=== PATIENT | male | born 1960 | race Asian ===

== ENCOUNTER 2017-07-10 21:42 | Inpatient (IN) | payer OTHER, MEDICAID ==
[2017-07-10] MEDS ORDERED: IOPAMIDOL (ISOVUE 370) 100 ML BTL IV ONE (21:53)
[2017-07-10 21:57] LABS: % IMMATURE GRANULYOCYTES 0.8 % (0.0-1.1); ADD DIFF? NO; ADD MORPH? NO; ADD SCAN? NO; ATYPICAL LYMPHOCYTE FLAG 20 (0-99); FRAGMENT RBC FLAG 0 (0-99); HEMATOCRIT 44.8 % (40.0-51.0); HEMOGLOBIN 15.3 g/dL (13.7-17.5); LEFT SHIFT FLG 0 (0-99); LIPEMIA HEMOLYSIS FLAG 90 (0-99); MEAN CELL HEMOGLOBIN 33.4 pg (27.9-34.1); MEAN CELL HEMOGLOBIN CONCENTR. 34.2 g/dL (32.4-36.7); MEAN CELL VOLUME 97.8 fL (81.5-99.8); MEAN PLATELET VOLUME 10.5 fL (8.7-11.7); PLATELET CLUMPS FLAG 10 (0-99); PLATELET COUNT 188 10^3/uL (150-400); RED BLOOD CELL COUNT 4.58 10^6/uL (4.40-6.38); RED CELL DISTRIBUTION WIDTH 12.4 % (11.5-15.2)
[2017-07-10] MEDS ORDERED: ONDANSETRON 4 MG/2 ML VIAL IVP ONE (21:57)
[2017-07-10] MEDS ORDERED: TDAP ADULT 0.5 ML INJ (BOOSTRIX) IM ONE (21:57)
[2017-07-10] MEDS ORDERED: ceFAZolin 2 GM/DEXTROSE 100 ML IV ONE ×2 (21:57→23:36)
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
[2017-07-10 22:06] LABS: INR 1.05 (0.83-1.16); PROTIME(PATIENT) 13.6 SEC (12.0-15.0)
[2017-07-10] MEDS ORDERED: NS 1,000 ML IV ONE (22:08)
[2017-07-10 22:14] LABS: ANION GAP 17 mEq/L (8-16); CALCIUM 9.4 mg/dL (8.5-10.4); CARBON DIOXIDE 17 mEq/l (22-31); CHLORIDE 104 mEq/L (97-110); CREATININE 0.9 mg/dL (0.7-1.3); ETHANOL SERUM 114 mg/dL (0-10); GLOMERULAR FILTRATION RATE > 60; GLUCOSE 184 mg/dL (70-100); POTASSIUM 3.6 mEq/L (3.5-5.2); SODIUM 138 mEq/L (134-144)
--- NOTE | 2017-07-10 22:30 | CPEKG ---
Heart Rate: 103 RR Interval: 583 P-R Interval: 156 QRSD Interval: 92 QT Interval: 320 QTC Interval: 419 P Richmond: 46 QRS Richmond: 53 T Wave Richmond: 248 EKG Severity - ABNORMAL ECG - EKG Impression: SINUS TACHYCARDIA EKG Impression: ABNRM R PROG, CONSIDER ASMI OR LEAD PLACEMENT Electronically Signed By: Fish Zaragoza 11-Jul-2017 07:28:48
[2017-07-10] MEDS ORDERED: ONDANSETRON 4 MG/2 ML VIAL IVP PRN (23:06)
[2017-07-10] MEDS ORDERED: LR 1,000 ML IV SCH (23:30)
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
--- NOTE | 2017-07-10 23:52 | SOAPPROG ---
Downtime Inpatient MD Late Entry SOAP Note: Spoke with Dr. Aly. Patient is low risk for surgery from a GCS standpoint but in view of his need for the OR with an acute SDH we will repeat the CT head immediately after the surgery. AVOID ANTICOAGULATION and ANTIPLATELET AGENTS IN THIS PATIENT. -Dusty Gould MD.
--- NOTE | 2017-07-10 23:55 | SOAPPROG ---
SOAP Progress Note Assessment/Plan: Assessment: Magdalena is a pleasant 56 year old male now POD#0 from open left distal tibia fracture. PE: Surgical dressing and posterior leg splint intact. NV intact LLE Plan: 1. NWB LLE 2. Ancef 1g q8 hours x 2 doses 3. Keep splint clean and dry 4. Discharge once cleared from trauma. Follow up in [address] Man for suture removal and repeat radiographs. Script for pain medication and oral antibiotics in chart. 07/11/17 02:23 Objective: PT 13.6 SEC (12.0-15.0) 07/10/17 21:50 INR 1.05 (0.83-1.16) 07/10/17 21:50 ICD10 Worksheet Patient Problems: Problems Problem Status Onset Intra abdominal hemorrhage Acute Open tibial fracture Acute Rib fractures Acute SDH (subdural hematoma) Acute
[2017-07-10] MEDS ORDERED: PROPOFOL 200 MG/20 ML VIAL ONE (23:56)
[2017-07-10] MEDS ORDERED: ROCURONIUM 50 MG/5 ML VIAL ONE (23:56)
[2017-07-10] MEDS ORDERED: fentaNYL 100 MCG/2 ML INJ ONE (23:57)
[2017-07-11] MEDS ORDERED: ceFAZolin 1 GM VIAL ONE ×2 (00:16)
--- NOTE | 2017-07-11 00:31 | PDANEPAE ---
ANE History of Present Illness L Tibia Fx ANE Past Medical History - Cardiovascular History Hx Hypertension: Yes Hx Arrhythmias: No Hx Chest Pain: No Hx Coronary Artery / Peripheral Vascular Disease: Yes Hx CHF / Valvular Disease: No Hx Palpitations: No Cardiovascular History Comment: htn. cad. stents x2 mi 06/19/13. untreated hyperlipidemia - Pulmonary History Hx COPD: No Hx Asthma/Reactive Airway Disease: No Hx Recent Upper Respiratory Infection: No Hx Oxygen in Use at Home: No Hx Sleep Apnea: No Pulmonary History Comment: julian triggers no dx - Neurologic History Hx Cerebrovascular Accident: Yes Hx Seizures: No Hx Dementia: No Neurologic History Comment: stroke with TX 06/2013- no residuals - Endocrine History Hx Diabetes: No - Renal History Hx Renal Disorders: No - Liver History Hx Hepatic Disorders: No - Neurological & Psychiatric Hx Hx Neurological and Psychiatric Disorders: No - Cancer History Hx Cancer: No - Congenital Disorder History Hx Congenital Disorders: No - GI History Hx Gastrointestinal Disorders: No - Other Health History Other Health History: full set of dentures. wears glasses occ. arabic speaking - Chronic Pain History Chronic Pain: No - Surgical History Prior Surgeries: stents placed x2 ANE Patient History - Allergies Allergies/Adverse Reactions: No Known Allergies Allergy (Verified 09/02/16 12:06) - Home Medications Home Medications: Aspirin [Aspirin 81mg (OTC)] 81 mg PO DAILY 06/19/13 [Last Taken 06/18/13] - Smoking Hx Smoking Status: Light smoker - Family Anes Hx Family Hx Anesthesia Complications: none ANE Labs/Vital Signs - Labs Result Diagrams: 07/10/17 21:50 07/10/17 21:50 ANE Physical Exam - Airway Neck exam: C-collar in place Mallampati Score: Class 2 Mouth exam: dentures - Pulmonary Pulmonary: reduced air movement - Cardiovascular Cardiovascular: regular rate and rhythym - ASA Status ASA Status: III, E ANE Anesthesia Plan Anesthesia Plan: general endotracheal anesthesia (Discussed Subdural management w/ Dr. Gould with the plan to CT post-op)
[2017-07-11] MEDS ORDERED: ONDANSETRON 4 MG/2 ML VIAL ONE (00:32)
[2017-07-11] MEDS ORDERED: ROCURONIUM 50 MG/5 ML VIAL ONE (00:32)
[2017-07-11] MEDS ORDERED: DEXAMETHASONE 4 MG/ML VIAL ONE (00:32)
[2017-07-11] MEDS ORDERED: fentaNYL 100 MCG/2 ML INJ IVP PRN (00:43)
[2017-07-11] MEDS ORDERED: HYDROmorphONE/DILAUDID 1 MG/ML INJ IVP PRN (00:43)
[2017-07-11] MEDS ORDERED: ALBUTEROL 3 ML DEYVIAL IH PRN (00:43)
[2017-07-11] MEDS ORDERED: NALOXONE HCL 0.4 MG/ML INJ IVP PRN (00:43)
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
[2017-07-11] MEDS ORDERED: fentaNYL 100 MCG/2 ML INJ ONE ×2 (01:23→01:58)
[2017-07-11] MEDS ORDERED: BUPIVACAINE 0.5% 30 ML SDV ONE (01:49)
[2017-07-11] MEDS ORDERED: LIDOCAINE 1% 300 MG/30 ML SDV ONE (01:49)
--- NOTE | 2017-07-11 02:26 | POSTOPPROG ---
Post Op Note Date of Operation: 07/11/17 Surgeon: Flip Man Die Keeper: Yuli Franz PA-C Anesthesia: GET(General Endotracheal) Pre-op Diagnosis: left open tibia fracture Post-op Diagnosis: left open tibia fracture Procedure: IM nail and I&D left open tibia fracture Inf/Abcess present in the surg proc area at time of surgery?: No Depth: Deep Incisional (Fascial) EBL: Minimal
[2017-07-11] MEDS ORDERED: LABETALOL HCL 5 MG/ML 20 ML MDV IVP PRN (02:28)
--- NOTE | 2017-07-11 02:30 | POSTANESTH ---
Post Anesthetic Evaluation Cardiovascular Status: Normal, Stable, Tx Hyper/Hypo-tension Respiratory Status: Normal, Stable Level of Consciousness/Mental Status: Can Participate in Eval, Mildly Sleepy, Arousable Pain Control: Adequate, Prn Tx Ordered Nausea/Vomiting Control: Adequate, Prn Tx Ordered Complications Possibly Related to Anesthesia: None Noted
[2017-07-11] MEDS: HYDROmorphONE/DILAUDID 1 MG/ML INJ IVP PRN ×3 (03:50→12:23)
[2017-07-11] MEDS: ACETAMINOPHEN 500 MG TAB PO SCH ×4 (03:51→23:59)
--- NOTE | 2017-07-11 04:17 | SOAPPROG ---
Downtime Inpatient MD Late Entry SOAP Note: Subdural appears stable on postop CT.
[2017-07-11] MEDS: oxyCODONE IR 5 MG TAB PO PRN ×2 (04:25→08:28)
[2017-07-11 04:33] LABS: COLOR YELLOW; LEUKOCYTE ESTERASE,URINE NEGATIVE (NEGATIVE); NITRITE,URINE NEGATIVE (NEGATIVE)
[2017-07-11 04:45] LABS: MUCUS TRACE /lpf (NONE-1+); RBC,URINE 25-50 /hpf (0-3)
[2017-07-11 06:08] LABS: % IMMATURE GRANULYOCYTES 0.8 % (0.0-1.1); ABSOLUTE IMMATURE GRANULOCYTES 0.12 10^3/uL (0.00-0.10); ADD DIFF? NO; ADD MORPH? NO; ADD SCAN? NO; ATYPICAL LYMPHOCYTE FLAG 0 (0-99); FRAGMENT RBC FLAG 0 (0-99); HEMATOCRIT 39.3 % (40.0-51.0); HEMOGLOBIN 13.4 g/dL (13.7-17.5); LEFT SHIFT FLG 10 (0-99); LIPEMIA HEMOLYSIS FLAG 90 (0-99); MEAN CELL HEMOGLOBIN 33.4 pg (27.9-34.1); MEAN CELL HEMOGLOBIN CONCENTR. 34.1 g/dL (32.4-36.7); MEAN PLATELET VOLUME 10.7 fL (8.7-11.7); PLATELET CLUMPS FLAG 10 (0-99); PLATELET COUNT 164 10^3/uL (150-400); RED BLOOD CELL COUNT 4.01 10^6/uL (4.40-6.38); RED CELL DISTRIBUTION WIDTH 12.5 % (11.5-15.2)
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
[2017-07-11 06:40] LABS: ANION GAP 13 mEq/L (8-16); CALCIUM 8.6 mg/dL (8.5-10.4); CARBON DIOXIDE 21 mEq/l (22-31); CHLORIDE 103 mEq/L (97-110); CREATININE 0.7 mg/dL (0.7-1.3); GLOMERULAR FILTRATION RATE > 60; GLUCOSE 178 mg/dL (70-100); POTASSIUM 4.1 mEq/L (3.5-5.2); SODIUM 137 mEq/L (134-144)
--- NOTE | 2017-07-11 09:48 | CPEKG ---
Heart Rate: 86 RR Interval: 698 P-R Interval: 144 QRSD Interval: 90 QT Interval: 376 QTC Interval: 450 P [place]: 17 QRS [place]: 0 T Wave [place]: -65 EKG Severity - ABNORMAL ECG - EKG Impression: SINUS RHYTHM EKG Impression: PROBABLE INFERIOR INFARCT, AGE INDETERMINATE EKG Impression: ABNRM R PROG, CONSIDER ASMI OR LEAD PLACEMENT EKG Impression: LATERAL LEADS ARE ALSO INVOLVED Electronically Signed By: Radhames Gonzalez 11-Jul-2017 13:15:26
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
--- NOTE | 2017-07-11 10:30 | SOAPPROG ---
SOAP Progress Note Assessment/Plan: Assessment: Clinically doing well with regard to chi and sdh. could go to the floor from our view point. speech pt ot no keppra no followup CT scans if he contines to do well does not appear to have a c spine injury but patient preferred the c collar so we left it in place. Plan: 07/11/17 10:29 Subjective: Doing fine. Does not complain of neck pain, but preferred leaving the C collar in place. Objective: Vital Signs Temp Pulse Resp BP Pulse Ox 36.8 C 88 16 142/55 H 95 07/11/17 04:00 07/11/17 08:00 07/11/17 08:00 07/11/17 08:00 07/11/17 08:00 Laboratory Results 07/11/17 05:50 07/11/17 05:50 07/10/17 07/11/17 07/12/17 05:59 05:59 05:59 Intake Total 1242 Output Total 850 600 Balance 392 -600 PT 13.6 SEC (12.0-15.0) 07/10/17 21:50 INR 1.05 (0.83-1.16) 07/10/17 21:50 E: open, +/+ M: FC bilater V: oriented to name and year and place. Could not be conversant with the patient due to language barrier. ICD10 Worksheet Patient Problems: Problems Problem Status Onset Intra abdominal hemorrhage Acute Open tibial fracture Acute Rib fractures Acute SDH (subdural hematoma) Acute
[2017-07-11 11:04] LABS: TROPONIN I < 0.012 ng/mL (0.000-0.034)
--- NOTE | 2017-07-11 11:08 | ECHO ---
[id number] + + [address] : : [place] [address] : : [phone] + + Adult Echocardiographic Report + ---------+ :Name: Mralena ALANIS Date: 07/11/2017 09:52 AM : : Hospital Admission Number: [id number] Mariaelena mallory: 248: :: 1960 Gender: Male Height: 67 i n : :Age: 56 yrs Race: Weight: 159 lb : :Reason For Study: Cardiomegaly : : BSA: 1.8 met ers2 : :History: Mi, Stents in 2013 : + ---------+ MMode/2D Measurements \T\ Calculations IVSd: 1.4 cm LVIDd: 5.6 cm FS: 39.5 % LVPWd: 1.1 cm LVIDs: 3.4 cm EDV(Teich): 150.5 ml ESV(Teich): 46.0 ml EF(Teich): 69.4 % Normal Measurement Values: + + :LVIDd (3.5-5.7cm) IVSd (0.6-1.1cm) LVPWd (0.6-1.1cm) Aortic Root (2.0-3.7cm)Left Atrium (1.5-4.0cm): :LV Vol(d) (76-115ml) LV Vol(s) (29-48ml) Ejec Fraction (50-65%)PV Grzegorz (0.6- 1.2m/s) TV Grzegorz (0.4-1.0m/s) : :MV E Grzegorz (0.8-1.0m/s)MV A Grzegorz (0.3-1.0m/s)LVOT Grzegorz (0.7-1.2m/s) Asc Ao Grzegorz ( 0.9-1.8m/s) : + + Doppler Measurements \T\ Calculations MV E max grzegorz: MV V2 max: Ao V2 max: LV V1 mean P.9 cm/sec 99.0 cm/sec 154.4 cm/sec 2.8 mmHg MV A max grzegorz: MV max PG: Ao max PG: LV V1 mean: 92.8 cm/sec 3.9 mmHg 9.5 mmHg 76.6 cm/sec MV E/A: 0.90 MV V2 mean: Ao mean PG: LV V1 VTI: 23.9 cm MV dec time: 62.2 cm/sec 4.1 mmHg 0.17 sec MV mean PG: Ao V2 mean: 1.7 mmHg 92.3 cm/sec MV V2 VTI: 23.6 cm Ao V2 VTI: 25.3 cm PA V2 max: 127.6 cm/sec PA max P.5 mmHg Left Ventricle The left ventricle is normal in size and function. There is mild concentric left ventricular hypertrophy. There is Doppler evidence for diastolic dysfunction. Ejection Fraction = 55%. Mid to distal anteroseptal hypokinesis. Right Ventricle The right ventricle is normal in size and function. Atria The left atrial size is normal. Right atrial size is normal. Mitral Valve The mitral valve is normal in structure and function. There is no mitral valve stenosis. There is trace to mild mitral regurgitation. Tricuspid Valve The tricuspid valve is normal in structure and function. There is no tricuspid stenosis. No tricuspid regurgitation. Aortic Valve The aortic valve is normal in structure and function. There is no aortic stenosis. There is no aortic insufficiency. Pulmonic Valve The pulmonic valve is not well visualized. There is no pulmonic valvular regurgitation. Great Vessels The aortic root is normal size. Pericardium/Pleural There is no pericardial effusion. Conclusion A complete two-dimensional transthoracic echocardiogram was performed (2D, M-mode, Doppler and color flow Doppler). The study was technically difficult. Limited parasternal windows available due to neck brace. Patient supine for duration of exam. There is mild concentric left ventricular hypertrophy. Mid to distal anteroseptal hypokinesis Ejection Fraction = 55%. There is Doppler evidence for diastolic dysfunction. There is trace to mild mitral regurgitation. The aortic valve is normal in structure and function. Final Reading Physician: Dragan Davis signed on 07/11/2017 11:07 AM Ordering Physician: David Francois Performed By: Anali Huynh
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
[2017-07-11] MEDS: metFORMIN HCL 500 MG TAB PO SCH ×2 (12:16→18:07)
[2017-07-11] MEDS: HYDROmorphONE/DILAUDID 2 MG TAB PO PRN (16:37)
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
[2017-07-12] MEDS: HYDROmorphONE/DILAUDID 2 MG TAB PO PRN
[2017-07-12 05:19] LABS: % IMMATURE GRANULYOCYTES 0.7 % (0.0-1.1); ABSOLUTE IMMATURE GRANULOCYTES 0.07 10^3/uL (0.00-0.10); ADD DIFF? NO; ADD MORPH? NO; ADD SCAN? NO; ATYPICAL LYMPHOCYTE FLAG 20 (0-99); FRAGMENT RBC FLAG 0 (0-99); HEMATOCRIT 36.6 % (40.0-51.0); HEMOGLOBIN 12.4 g/dL (13.7-17.5); LEFT SHIFT FLG 0 (0-99); LIPEMIA HEMOLYSIS FLAG 90 (0-99); MEAN CELL HEMOGLOBIN 33.3 pg (27.9-34.1); MEAN CELL HEMOGLOBIN CONCENTR. 33.9 g/dL (32.4-36.7); MEAN CELL VOLUME 98.4 fL (81.5-99.8); MEAN PLATELET VOLUME 11.1 fL (8.7-11.7); PLATELET CLUMPS FLAG 10 (0-99); PLATELET COUNT 151 10^3/uL (150-400); RED BLOOD CELL COUNT 3.72 10^6/uL (4.40-6.38); RED CELL DISTRIBUTION WIDTH 12.6 % (11.5-15.2)
[2017-07-12] MEDS: ACETAMINOPHEN 500 MG TAB PO SCH ×3 (07:32→22:30)
[2017-07-12] MEDS: metFORMIN HCL 500 MG TAB PO SCH ×3 (07:42→18:19)
[2017-07-12] MEDS: LISINOPRIL 40 MG TAB PO SCH (08:27)
[2017-07-12] MEDS: METOPROLOL SUCCINATE XR 100 MG TAB PO SCH (08:27)
[2017-07-12] MEDS: TAMSULOSIN HCL 0.4 MG CAP PO SCH (08:27)
[2017-07-12] MEDS: ATORVASTATIN CALCIUM 40 MG TAB PO SCH (08:27)
[2017-07-12] MEDS ORDERED: ALBUTEROL 60 PUFFS/8 GM MDI IH PRN (09:24)
[2017-07-12] MEDS ORDERED: chlordiazePOXIDE 25 MG CAP PO ONE (09:25)
[2017-07-12] MEDS ORDERED: chlordiazePOXIDE 25 MG CAP PO PRN (09:25)
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
--- NOTE | 2017-07-12 09:52 | SOAPPROG ---
SOAP Progress Note Assessment/Plan: Assessment: Clinically doing well with regard to chi and sdh. could go to the floor from our view point. speech pt ot no keppra no followup CT scans if he contines to do well we will sign off at this point. He can arrange to see us after discharge in 3- 4 weeks from now just to check his progress. Plan: 07/11/17 10:29 07/12/17 09:51 Subjective: Doing fine neurologically Objective: Vital Signs Temp Pulse Resp BP Pulse Ox 36.9 C 67 14 147/76 H 95 07/12/17 07:51 07/12/17 08:27 07/12/17 07:51 07/12/17 08:27 07/12/17 07:51 Laboratory Results 07/12/17 05:00 07/11/17 07/12/17 07/13/17 05:59 05:59 05:59 Intake Total 2287 Output Total 2975 Balance -688 PT 13.6 SEC (12.0-15.0) 07/10/17 21:50 INR 1.05 (0.83-1.16) 07/10/17 21:50 GCS 15 ICD10 Worksheet Patient Problems: Problems Problem Status Onset Intra abdominal hemorrhage Acute Lung nodule < 6cm on CT Acute Lung nodule seen on imaging study Acute Open tibial fracture Acute Radial fracture Acute Rib fractures Acute SDH (subdural hematoma) Acute Soft palate injury Acute Wrist fracture, left Acute
[2017-07-12] MEDS: FOLIC ACID 1 MG TAB PO SCH (10:10)
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
[2017-07-12] MEDS ORDERED: IOPAMIDOL (ISOVUE 370) 100 ML BTL IV ONE (10:41)
[2017-07-12] MEDS: oxyCODONE IR 5 MG TAB PO PRN ×2 (12:22→19:59)
[2017-07-13] MEDS: oxyCODONE IR 5 MG TAB PO PRN ×3 (00:33→21:01)
[2017-07-13 04:55] LABS: % IMMATURE GRANULYOCYTES 0.5 % (0.0-1.1); ABSOLUTE IMMATURE GRANULOCYTES 0.05 10^3/uL (0.00-0.10); ADD DIFF? NO; ADD MORPH? NO; ADD SCAN? NO; ATYPICAL LYMPHOCYTE FLAG 20 (0-99); FRAGMENT RBC FLAG 0 (0-99); HEMATOCRIT 35.7 % (40.0-51.0); HEMOGLOBIN 11.9 g/dL (13.7-17.5); LEFT SHIFT FLG 0 (0-99); LIPEMIA HEMOLYSIS FLAG 80 (0-99); MEAN CELL HEMOGLOBIN 33.2 pg (27.9-34.1); MEAN CELL HEMOGLOBIN CONCENTR. 33.3 g/dL (32.4-36.7); MEAN CELL VOLUME 99.7 fL (81.5-99.8); MEAN PLATELET VOLUME 11.3 fL (8.7-11.7); PLATELET CLUMPS FLAG 0 (0-99); PLATELET COUNT 151 10^3/uL (150-400); RED BLOOD CELL COUNT 3.58 10^6/uL (4.40-6.38); RED CELL DISTRIBUTION WIDTH 12.4 % (11.5-15.2)
[2017-07-13] MEDS: HYDROmorphONE/DILAUDID 2 MG TAB PO PRN ×2 (05:14→13:10)
[2017-07-13 05:18] LABS: ANION GAP 9 mEq/L (8-16); CALCIUM 8.4 mg/dL (8.5-10.4); CARBON DIOXIDE 24 mEq/l (22-31); CHLORIDE 105 mEq/L (97-110); CREATININE 0.7 mg/dL (0.7-1.3); GLOMERULAR FILTRATION RATE > 60; GLUCOSE 133 mg/dL (70-100); POTASSIUM 4.1 mEq/L (3.5-5.2); SODIUM 138 mEq/L (134-144)
[2017-07-13] MEDS: FOLIC ACID 1 MG TAB PO SCH (08:19)
[2017-07-13] MEDS: TAMSULOSIN HCL 0.4 MG CAP PO SCH (08:19)
[2017-07-13] MEDS: LISINOPRIL 40 MG TAB PO SCH (08:19)
[2017-07-13] MEDS: ACETAMINOPHEN 500 MG TAB PO SCH ×2 (08:19→15:41)
[2017-07-13] MEDS: ATORVASTATIN CALCIUM 40 MG TAB PO SCH (08:19)
[2017-07-13] MEDS: metFORMIN HCL 500 MG TAB PO SCH ×3 (08:20→17:48)
[2017-07-13] MEDS: METOPROLOL SUCCINATE XR 100 MG TAB PO SCH (08:20)
--- NOTE | 2017-07-13 09:22 | SOAPPROG ---
SOAP Progress Note Assessment/Plan: Assessment: Clinically doing well with regard to chi and sdh. could go to the floor from our view point. speech pt ot no keppra (Did not meet criteria for this) no followup CT scans if he contines to do well He did not appear to have any seizure activity when approached. We will add keppra and get an opinion from neurology. They have been consulted. Plan: 07/11/17 10:29 07/12/17 09:51 07/13/17 09:21 Subjective: Pt doing fine now. RN reports absence seizure. Objective: Vital Signs Temp Pulse Resp BP Pulse Ox 37.2 C 83 18 138/81 H 96 07/13/17 08:00 07/13/17 08:20 07/13/17 08:00 07/13/17 08:20 07/13/17 08:00 Laboratory Results 07/13/17 04:15 07/13/17 04:15 07/12/17 07/13/17 07/14/17 05:59 05:59 05:59 Intake Total 2287 Output Total 2855 1950 Balance -688 -1950 PT 13.6 SEC (12.0-15.0) 07/10/17 21:50 INR 1.05 (0.83-1.16) 07/10/17 21:50 GCS 15 ICD10 Worksheet Patient Problems: Problems Problem Status Onset Intra abdominal hemorrhage Acute Lung nodule < 6cm on CT Acute Lung nodule seen on imaging study Acute Open tibial fracture Acute Radial fracture Acute Rib fractures Acute SDH (subdural hematoma) Acute Soft palate injury Acute Wrist fracture, left Acute
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
[2017-07-13] MEDS: levETIRAcetam 500 MG TAB PO SCH ×2 (11:50→21:01)
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
[2017-07-13] MEDS: CEPHALEXIN 500 MG CAP PO SCH ×2 (17:48→21:01)
[2017-07-14] MEDS: ACETAMINOPHEN 500 MG TAB PO SCH ×5 (00:22→22:42)
[2017-07-14] MEDS: oxyCODONE IR 5 MG TAB PO PRN ×4 (03:40→20:11)
[2017-07-14 05:13] LABS: ANION GAP 10 mEq/L (8-16); CALCIUM 8.9 mg/dL (8.5-10.4); CARBON DIOXIDE 24 mEq/l (22-31); CHLORIDE 101 mEq/L (97-110); CREATININE 0.8 mg/dL (0.7-1.3); GLOMERULAR FILTRATION RATE > 60; GLUCOSE 145 mg/dL (70-100); MAGNESIUM 1.9 mg/dL (1.6-2.3); SODIUM 135 mEq/L (134-144)
[2017-07-14 06:01] LABS: % IMMATURE GRANULYOCYTES 0.6 % (0.0-1.1); ABSOLUTE IMMATURE GRANULOCYTES 0.05 10^3/uL (0.00-0.10); ADD DIFF? NO; ADD MORPH? NO; ADD SCAN? NO; ATYPICAL LYMPHOCYTE FLAG 20 (0-99); FRAGMENT RBC FLAG 30 (0-99); HEMATOCRIT 35.9 % (40.0-51.0); HEMOGLOBIN 12.1 g/dL (13.7-17.5); LEFT SHIFT FLG 0 (0-99); LIPEMIA HEMOLYSIS FLAG 80 (0-99); MEAN CELL HEMOGLOBIN 33.7 pg (27.9-34.1); MEAN CELL HEMOGLOBIN CONCENTR. 33.7 g/dL (32.4-36.7); PLATELET CLUMPS FLAG 10 (0-99); PLATELET COUNT 180 10^3/uL (150-400); RED BLOOD CELL COUNT 3.59 10^6/uL (4.40-6.38); RED CELL DISTRIBUTION WIDTH 12.1 % (11.5-15.2)
[2017-07-14] MEDS: CEPHALEXIN 500 MG CAP PO SCH ×4 (06:13→20:11)
[2017-07-14] MEDS: ATORVASTATIN CALCIUM 40 MG TAB PO SCH (09:02)
[2017-07-14] MEDS: metFORMIN HCL 500 MG TAB PO SCH ×3 (09:03→17:07)
[2017-07-14] MEDS: LISINOPRIL 40 MG TAB PO SCH (09:03)
[2017-07-14] MEDS: METOPROLOL SUCCINATE XR 100 MG TAB PO SCH (09:03)
[2017-07-14] MEDS: TAMSULOSIN HCL 0.4 MG CAP PO SCH (09:03)
[2017-07-14] MEDS: levETIRAcetam 500 MG TAB PO SCH ×2 (09:03→20:11)
[2017-07-14] MEDS: FOLIC ACID 1 MG TAB PO SCH (09:03)
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
--- NOTE | 2017-07-14 20:11 | TRAUMAPN ---
Assessment/Plan: Will need to look for placement. Thought may be that he could go home with wheelchair but further discussions with family, this is not possible Will need followup with [facility] in 3-4 weeks Will need followup with Dr. Man in 2 weeks YAKOV CADE and SURAJ. ABX until 2016 Follow up neurology [phone] after discharge. Driving restrictions x 90 days. Seizure precautions F/U general surgery in 2-3 weeks for pelvic hematoma. also will need follow up for lung nodule and adrenal nodule S: Much improved today. participating in therapies Objective: Vital Signs Temp Pulse Resp BP Pulse Ox 36.9 C 66 16 130/71 H 94 07/14/17 19:30 07/14/17 19:30 07/14/17 19:30 07/14/17 19:30 07/14/17 19:30 Laboratory Results 07/14/17 04:14 07/14/17 04:14 07/13/17 07/14/17 07/15/17 05:59 05:59 05:59 Intake Total 1000 Output Total 1950 1450 1700 Balance -1950 -1450 -700 PT 13.6 SEC (12.0-15.0) 07/10/17 21:50 INR 1.05 (0.83-1.16) 07/10/17 21:50 - C-Spine Clearance Cervical Spine Cleared: Yes Provider who Cleared Cervical Spine: Nacho Time Cervical Spine was Cleared: 11:00 Physical Exam - Physical Exam General Appearance: WD/WN, alert, no apparent distress EENT: PERRL/EOMI, normal ENT inspection, No scleral icterus (R), No scleral icterus (L), No hearing deficit Neck: non-tender, full range of motion Respiratory: lungs clear, normal breath sounds Cardiac/Chest: regular rate, rhythm, No edema Extremities: other (splint lue and lle)
[2017-07-14] MEDS: HYDROmorphONE/DILAUDID 2 MG TAB PO PRN (22:43)
[2017-07-15 01:34] LABS: % IMMATURE GRANULYOCYTES 0.6 % (0.0-1.1); ABSOLUTE IMMATURE GRANULOCYTES 0.05 10^3/uL (0.00-0.10); ADD DIFF? NO; ADD MORPH? NO; ADD SCAN? NO; ATYPICAL LYMPHOCYTE FLAG 20 (0-99); FRAGMENT RBC FLAG 0 (0-99); HEMATOCRIT 37.8 % (40.0-51.0); HEMOGLOBIN 12.9 g/dL (13.7-17.5); LEFT SHIFT FLG 0 (0-99); LIPEMIA HEMOLYSIS FLAG 90 (0-99); MEAN CELL HEMOGLOBIN 33.2 pg (27.9-34.1); MEAN CELL HEMOGLOBIN CONCENTR. 34.1 g/dL (32.4-36.7); MEAN CELL VOLUME 97.4 fL (81.5-99.8); MEAN PLATELET VOLUME 10.8 fL (8.7-11.7); PLATELET CLUMPS FLAG 0 (0-99); PLATELET COUNT 198 10^3/uL (150-400); RED BLOOD CELL COUNT 3.88 10^6/uL (4.40-6.38); RED CELL DISTRIBUTION WIDTH 12.1 % (11.5-15.2)
[2017-07-15 01:42] LABS: ANION GAP 12 mEq/L (8-16); CALCIUM 9.3 mg/dL (8.5-10.4); CARBON DIOXIDE 23 mEq/l (22-31); CHLORIDE 102 mEq/L (97-110); CREATININE 0.7 mg/dL (0.7-1.3); GLOMERULAR FILTRATION RATE > 60; GLUCOSE 126 mg/dL (70-100); MAGNESIUM 1.6 mg/dL (1.6-2.3); POTASSIUM 4.3 mEq/L (3.5-5.2); SODIUM 137 mEq/L (134-144)
[2017-07-15] MEDS: CEPHALEXIN 500 MG CAP PO SCH ×4 (06:19→20:47)
[2017-07-15] MEDS: ACETAMINOPHEN 500 MG TAB PO SCH ×3 (06:19→23:46)
[2017-07-15] MEDS: LISINOPRIL 40 MG TAB PO SCH (09:56)
[2017-07-15] MEDS: metFORMIN HCL 500 MG TAB PO SCH ×3 (09:56→18:13)
[2017-07-15] MEDS: METOPROLOL SUCCINATE XR 100 MG TAB PO SCH (09:56)
[2017-07-15] MEDS: TAMSULOSIN HCL 0.4 MG CAP PO SCH (09:57)
[2017-07-15] MEDS: ATORVASTATIN CALCIUM 40 MG TAB PO SCH (09:57)
[2017-07-15] MEDS: levETIRAcetam 500 MG TAB PO SCH ×2 (09:57→20:47)
[2017-07-15] MEDS: FOLIC ACID 1 MG TAB PO SCH (09:57)
[2017-07-15] MEDS: THIAMINE HCL 100 MG TAB PO SCH (09:57)
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
--- NOTE | 2017-07-15 19:06 | SOAPPROG ---
SOAP Progress Note Assessment/Plan: Assessment: seen with pa today / no additional findings Plan:rehab placement 07/15/17 19:05 Objective: Vital Signs Temp Pulse Resp BP Pulse Ox 36.8 C 80 20 152/84 H 94 07/15/17 15:47 07/15/17 15:47 07/15/17 15:47 07/15/17 15:47 07/15/17 15:47 Laboratory Results 07/15/17 01:10 07/15/17 01:10 07/14/17 07/15/17 07/16/17 05:59 05:59 05:59 Intake Total 1000 150 Output Total 1450 2750 380 Balance -1450 -1750 -230 PT 13.6 SEC (12.0-15.0) 07/10/17 21:50 INR 1.05 (0.83-1.16) 07/10/17 21:50 ICD10 Worksheet Patient Problems: Problems Problem Status Onset Intra abdominal hemorrhage Acute Lung nodule < 6cm on CT Acute Lung nodule seen on imaging study Acute Open tibial fracture Acute Radial fracture Acute Rib fractures Acute SDH (subdural hematoma) Acute Soft palate injury Acute Wrist fracture, left Acute
[2017-07-15] MEDS: oxyCODONE IR 5 MG TAB PO PRN (20:47)
[2017-07-16] MEDS: CEPHALEXIN 500 MG CAP PO SCH ×4 (06:18→20:47)
[2017-07-16] MEDS: ACETAMINOPHEN 500 MG TAB PO SCH ×3 (06:18→22:59)
[2017-07-16] MEDS: metFORMIN HCL 500 MG TAB PO SCH ×3 (08:15→18:45)
[2017-07-16] MEDS: ATORVASTATIN CALCIUM 40 MG TAB PO SCH (08:16)
[2017-07-16] MEDS: METOPROLOL SUCCINATE XR 100 MG TAB PO SCH (08:17)
[2017-07-16] MEDS: FOLIC ACID 1 MG TAB PO SCH (08:18)
[2017-07-16] MEDS: LISINOPRIL 40 MG TAB PO SCH (08:18)
[2017-07-16] MEDS: THIAMINE HCL 100 MG TAB PO SCH (08:19)
[2017-07-16] MEDS: TAMSULOSIN HCL 0.4 MG CAP PO SCH (08:19)
[2017-07-16] MEDS: levETIRAcetam 500 MG TAB PO SCH ×2 (08:19→20:47)
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
[2017-07-16] MEDS: oxyCODONE IR 5 MG TAB PO PRN ×2 (16:01→22:58)
[2017-07-17] MEDS: oxyCODONE IR 5 MG TAB PO PRN ×2 (05:26→21:50)
[2017-07-17] MEDS: CEPHALEXIN 500 MG CAP PO SCH ×4 (05:26→20:52)
[2017-07-17] MEDS: ACETAMINOPHEN 500 MG TAB PO SCH ×3 (05:26→21:51)
[2017-07-17] MEDS: LISINOPRIL 40 MG TAB PO SCH (09:01)
[2017-07-17] MEDS: FOLIC ACID 1 MG TAB PO SCH (09:01)
[2017-07-17] MEDS: METOPROLOL SUCCINATE XR 100 MG TAB PO SCH (09:01)
[2017-07-17] MEDS: THIAMINE HCL 100 MG TAB PO SCH (09:01)
[2017-07-17] MEDS: TAMSULOSIN HCL 0.4 MG CAP PO SCH (09:02)
[2017-07-17] MEDS: ATORVASTATIN CALCIUM 40 MG TAB PO SCH (09:02)
[2017-07-17] MEDS: metFORMIN HCL 500 MG TAB PO SCH ×3 (09:02→17:27)
[2017-07-17] MEDS: levETIRAcetam 500 MG TAB PO SCH ×2 (09:02→20:52)
--- NOTE | 2017-07-17 09:24 | PDIAF ---
- Diagnosis Code Status: Full Code - Medication Management Discharge Medications: Medications to Continue on Transfer Aspirin EC [Aspirin EC 81 mg (*)] 81 mg PO DAILY 07/11/17 [Last Taken Unknown] Atorvastatin Calcium [Lipitor 40 mg (*)] 40 mg PO DAILY 07/11/17 [Last Taken Unknown] Clopidogrel Bisulfate [Plavix (*)] 75 mg PO DAILY 07/11/17 [Last Taken Unknown] Lisinopril [Zestril 40 mg (*)] 40 mg PO DAILY 07/11/17 [Last Taken Unknown] Metoprolol Succinate Xr [Toprol Xl 100 mg (*)] 200 mg PO DAILY 07/11/17 [Last Taken Unknown] Tamsulosin HCl [Flomax 0.4 MG (*)] 0.4 mg PO DAILY 07/11/17 [Last Taken Unknown] metFORMIN HCL [Glucophage 500 mg (*)] 500 mg PO TIDMEAL 07/11/17 [Last Taken Unknown] Acetaminophen [Tylenol ES 500 mg (*)] 1,000 mg PO Q8H tab 07/17/17 [Last Taken Unknown] Albuterol [Proventil Inhaler HFA (*)] 2 puffs IH Q4HRS PRN mdi 07/17/17 [Last Taken Unknown] Cephalexin [Keflex (*)] 500 mg PO QID cap 07/17/17 [Last Taken Unknown] Folic Acid [Folic Acid 1 MG (*)] 1 mg PO DAILY tab 07/17/17 [Last Taken Unknown ] Thiamine HCl [Vitamin B-1] 100 mg PO DAILY tab 07/17/17 [Last Taken Unknown] chlordiazePOXIDE [Librium 25 mg (*)] 25 - 50 mg PO Q4HRS PRN cap 07/17/17 [ Last Taken Unknown] levETIRAcetam [Keppra 500 mg (*)] 500 mg PO BID tab 07/17/17 [Last Taken Unknown] oxyCODONE IR [Oxycodone Ir (*)] 5 mg PO Q4HRS PRN tab 07/17/17 [Last Taken Unknown] Prison Antibiotic Stop Date: 07/26/17 Discharge Medications: Refer to the Discharge Home Medication list for PRN reason. - Orders Diet Recommendation: no restrictions on diet Diet Texture: Regular Texture Diet Activity/Weight Bearing Restrictions: Nonweightbearing left upper extremity. CAM walker left lower extremity touchdown weight-bearing with walker - Follow Up Care Current Providers and Referrals: Arvind Bonilla MD [Medical Doctor] - (FOLLOW UP R/T PELVIC HEMATOMA. ALSO NEED FOLLOW UP FOR LUNG NODULE AND ADRENAL NODULE. CALL FOR APPT.) Flip Man MD [Medical Doctor] - (FOLLOW UP IN 2 WEEKS. CHANGE TO LT FOREARM CAST. NEED XRAYS CALL TO SCHEDULE ) Collin Gould MD [Medical Doctor] - (CALL TO SCHEDULE APT TO BE SEEN IN 3-4 WEEKS. ) Patient,NotPresent [Unknown] - As per Instructions Tra Nicholson MD [Medical Doctor] - (SEIZURE PRECAUTIONS, NO DRIVING X 90 DAYS OR UNTIL CLEARED BY NEUROLOGY)
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
[2017-07-18] MEDS: ACETAMINOPHEN 500 MG TAB PO SCH ×3 (05:20→23:31)
[2017-07-18] MEDS: CEPHALEXIN 500 MG CAP PO SCH ×4 (05:20→20:52)
[2017-07-18] MEDS: oxyCODONE IR 5 MG TAB PO PRN ×2 (05:23→20:51)
[2017-07-18] MEDS: metFORMIN HCL 500 MG TAB PO SCH ×3 (07:48→18:45)
[2017-07-18] MEDS: levETIRAcetam 500 MG TAB PO SCH ×2 (07:48→20:52)
[2017-07-18] MEDS: FOLIC ACID 1 MG TAB PO SCH (07:48)
[2017-07-18] MEDS: ATORVASTATIN CALCIUM 40 MG TAB PO SCH (07:48)
[2017-07-18] MEDS: TAMSULOSIN HCL 0.4 MG CAP PO SCH (07:48)
[2017-07-18] MEDS: METOPROLOL SUCCINATE XR 100 MG TAB PO SCH (07:49)
[2017-07-18] MEDS: THIAMINE HCL 100 MG TAB PO SCH (07:49)
[2017-07-18] MEDS: LISINOPRIL 40 MG TAB PO SCH (07:51)
--- NOTE | 2017-07-18 10:57 | SOAPPROG ---
SOAP Progress Note Assessment/Plan: Assessment: seen with pa today / no additional findings Plan:rehab placement 07/15/17 19:05 07/18/17 10:56 STABLE VITAL SIGNS/AFEBRILE/ NO NEW PROBLEMS/ AWAIT REHAB PLACEMENT CHEST CLEAR AND SYMMETRIC / COR REGULAR RHYTHM / ABDOMEN SOFT NONTENDER / EXTREMITIES NO CHANGE WITH NO WEIGHT-BEARING ON THE LEFT ARM AND LEFT LEG Objective: Vital Signs Temp Pulse Resp BP Pulse Ox 36.4 C 80 16 132/74 H 96 07/17/17 21:55 07/18/17 07:49 07/17/17 21:55 07/18/17 07:51 07/17/17 21:55 Laboratory Results 07/15/17 01:10 07/15/17 01:10 07/17/17 07/18/17 07/19/17 05:59 05:59 05:59 Intake Total 500 1620 Output Total 800 600 Balance -300 1020 PT 13.6 SEC (12.0-15.0) 07/10/17 21:50 INR 1.05 (0.83-1.16) 07/10/17 21:50 ICD10 Worksheet Patient Problems: Problems Problem Status Onset Intra abdominal hemorrhage Acute Lung nodule < 6cm on CT Acute Lung nodule seen on imaging study Acute Open tibial fracture Acute Radial fracture Acute Rib fractures Acute SDH (subdural hematoma) Acute Soft palate injury Acute Wrist fracture, left Acute
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
--- NOTE | 2017-07-18 17:07 | ASMTCMCOM ---
CM Note CM Note Notes: [facility] worker out this pm to assess. [facility]. Pt can d/c when paperwork is in from [facility]. CM to follow. Date Signed: 07/16/2017 04:43 PM Electronically Signed By:Mylene Mckenzie
[2017-07-19] MEDS: CEPHALEXIN 500 MG CAP PO SCH ×4 (06:19→22:00)
[2017-07-19] MEDS: LISINOPRIL 40 MG TAB PO SCH (08:17)
[2017-07-19] MEDS: METOPROLOL SUCCINATE XR 100 MG TAB PO SCH (08:17)
[2017-07-19] MEDS: ACETAMINOPHEN 500 MG TAB PO SCH ×3 (08:18→21:59)
[2017-07-19] MEDS: TAMSULOSIN HCL 0.4 MG CAP PO SCH (08:18)
[2017-07-19] MEDS: FOLIC ACID 1 MG TAB PO SCH (08:18)
[2017-07-19] MEDS: metFORMIN HCL 500 MG TAB PO SCH ×3 (08:19→18:20)
[2017-07-19] MEDS: ATORVASTATIN CALCIUM 40 MG TAB PO SCH (08:19)
[2017-07-19] MEDS: levETIRAcetam 500 MG TAB PO SCH ×2 (08:19→22:00)
[2017-07-19] MEDS: THIAMINE HCL 100 MG TAB PO SCH (08:19)
--- NOTE | 2017-07-19 13:24 | ASMTCAGE ---
CAGE Do you feel you ought to Answers: Yes cut down on your drinking or drug use? Do people annoy you by Answers: No criticizing your drinking or drug use? Do you feel guilty about Answers: No your drinking or drug use? Do you drink or use drugs Answers: No first thing in the morning ([employer] Operation Coordinator)? Date Signed: 07/19/2017 01:23 PM Electronically Signed By:Oralia Patel
--- NOTE | 2017-07-19 14:26 | ASMTCMCOM ---
CM Note CM Note Notes: Spoke with Shasha at [facility] #[phone], ULTC-100 Assessment and PASRR will be competed this afternoon and sent to [facility] by Wednesday. Spoke with Barbara Schneider at [facility] #[phone], confirmed they are able to accept on Wednesday. Shasha at [facility] to get in touch with Barbara to confirm admission as well. Updated patient and dtr and also Dr. Cabrera. CM will follow. Date Signed: 07/19/2017 02:25 PM Electronically Signed By:Telma Marie
[2017-07-19] MEDS: oxyCODONE IR 5 MG TAB PO PRN ×2 (16:00→22:00)
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
[2017-07-20] MEDS: CEPHALEXIN 500 MG CAP PO SCH (06:23)
[2017-07-20] MEDS: ACETAMINOPHEN 500 MG TAB PO SCH (06:24)
[2017-07-20] MEDS: oxyCODONE IR 5 MG TAB PO PRN (06:25)
[2017-07-20 07:46] VITALS: RESP 12; O2SAT 93
[2017-07-20] MEDS: levETIRAcetam 500 MG TAB PO SCH (07:57)
[2017-07-20] MEDS: FOLIC ACID 1 MG TAB PO SCH (07:57)
[2017-07-20] MEDS: ATORVASTATIN CALCIUM 40 MG TAB PO SCH (07:57)
[2017-07-20] MEDS: TAMSULOSIN HCL 0.4 MG CAP PO SCH (07:57)
[2017-07-20] MEDS: METOPROLOL SUCCINATE XR 100 MG TAB PO SCH (07:57)
[2017-07-20] MEDS: LISINOPRIL 40 MG TAB PO SCH (07:57)
[2017-07-20] MEDS: metFORMIN HCL 500 MG TAB PO SCH (07:57)
[2017-07-20] MEDS: THIAMINE HCL 100 MG TAB PO SCH (07:58)
[2017-07-20 08:27] VITALS: BP 114/70; PULSE 65; TEMP 97.6
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
--- NOTE | 2017-07-20 09:36 | PDIAF ---
- Diagnosis Code Status: Full Code - Medication Management Discharge Medications: Medications to Continue on Transfer Aspirin EC [Aspirin EC 81 mg (*)] 81 mg PO DAILY 07/11/17 [Last Taken Unknown] Atorvastatin Calcium [Lipitor 40 mg (*)] 40 mg PO DAILY 07/11/17 [Last Taken Unknown] Clopidogrel Bisulfate [Plavix (*)] 75 mg PO DAILY 07/11/17 [Last Taken Unknown] Lisinopril [Zestril 40 mg (*)] 40 mg PO DAILY 07/11/17 [Last Taken Unknown] Metoprolol Succinate Xr [Toprol Xl 100 mg (*)] 200 mg PO DAILY 07/11/17 [Last Taken Unknown] Tamsulosin HCl [Flomax 0.4 MG (*)] 0.4 mg PO DAILY 07/11/17 [Last Taken Unknown] metFORMIN HCL [Glucophage 500 mg (*)] 500 mg PO TIDMEAL 07/11/17 [Last Taken Unknown] Acetaminophen [Tylenol ES 500 mg (*)] 1,000 mg PO Q8H tab 07/17/17 [Last Taken Unknown] Albuterol [Proventil Inhaler HFA (*)] 2 puffs IH Q4HRS PRN mdi 07/17/17 [Last Taken Unknown] Cephalexin [Keflex (*)] 500 mg PO QID cap 07/17/17 [Last Taken Unknown] Folic Acid [Folic Acid 1 MG (*)] 1 mg PO DAILY tab 07/17/17 [Last Taken Unknown ] Thiamine HCl [Vitamin B-1] 100 mg PO DAILY tab 07/17/17 [Last Taken Unknown] chlordiazePOXIDE [Librium 25 mg (*)] 25 - 50 mg PO Q4HRS PRN cap 07/17/17 [ Last Taken Unknown] levETIRAcetam [Keppra 500 mg (*)] 500 mg PO BID tab 07/17/17 [Last Taken Unknown] oxyCODONE IR [Oxycodone Ir (*)] 5 mg PO Q4HRS PRN tab 07/17/17 [Last Taken Unknown] Custodial Antibiotic Stop Date: 07/26/17 Discharge Medications: Refer to the Discharge Home Medication list for PRN reason. - Orders Services needed: Physical Therapy, Occupational Therapy Diet Recommendation: no restrictions on diet Diet Texture: Regular Texture Diet Activity/Weight Bearing Restrictions: Nonweightbearing left upper extremity. left lower extremity also non weight-bearing with CAM boot and walker - Follow Up Care Current Providers and Referrals: Arvind Bonilla MD [Medical Doctor] - (FOLLOW UP R/T PELVIC HEMATOMA. ALSO NEED FOLLOW UP FOR LUNG NODULE AND ADRENAL NODULE. CALL FOR APPT.) Flip Man MD [Medical Doctor] - (FOLLOW UP IN LESS THAN 2 WEEKS. CHANGE TO LT FOREARM CAST. NEED XRAYS OF FRACTURES CALL TO SCHEDULE ) Collin Gould MD [Medical Doctor] - (CALL TO SCHEDULE APT TO BE SEEN IN 2 WEEKS. ) Patient,NotPresent [Unknown] - As per Instructions Tra Nicholson MD [Medical Doctor] - (SEIZURE PRECAUTIONS, NO DRIVING X 90 DAYS OR UNTIL CLEARED BY NEUROLOGY. CALL FOR APT TO BE SEEN IN 4-6 WEEKS)
--- NOTE | 2017-07-20 11:14 | ASMTCMCOM ---
CM Note CM Note Notes: Received a call from Tanner at [facility], ULTC-100 and PASRR received, able to accept patient today. Final orders sent to [facility], confirmed with Barbara received. Transport arranged by [facility]--Saeid Davis will pick-up @ 12 p.m. today, daughter notified of transport time. Discussed with RN who will call report. Case Management available for any further needs. Date Signed: 07/20/2017 11:14 AM Electronically Signed By:Telma Marie RN
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
== END 2017-07-20 12:19 | DRG 958 ==
LOC: EDUNIT# → INTOOBSV 23:01 → F2N 07-11 02:04 → OBSVTOIN 07-11 11:59 → F3N 07-12 11:12
PROVIDERS: ADMIT Surgery; ATTEND Surgery
PROC: 0QSH06Z Reposition Left Tibia with Intramedullary Internal Fixation Device, Open Approach (ICD-10-PCS; principal; 2017-07-11)
DX: S82.252B Displaced comminuted fracture of shaft of left tibia, initial encounter for open fracture type I or II (principal); S22.42XA Multiple fractures of ribs, left side, initial encounter for closed fracture; S06.5X0A Traumatic subdural hemorrhage without loss of consciousness, initial encounter; S52.572A Other intraarticular fracture of lower end of left radius, initial encounter for closed fracture; S52.612A Displaced fracture of left ulna styloid process, initial encounter for closed fracture; V43.52XA Car driver injured in collision with other type car in traffic accident, initial encounter; F10.129 Alcohol abuse with intoxication, unspecified; S30.811A Abrasion of abdominal wall, initial encounter; S09.93XA Unspecified injury of face, initial encounter; Y90.5 Blood alcohol level of 100-119 mg/100 ml; R40.2411 Glasgow coma scale score 13-15, in the field [EMT or ambulance]; R91.1 Solitary pulmonary nodule; I48.91 Unspecified atrial fibrillation; I25.10 Atherosclerotic heart disease of native coronary artery without angina pectoris; N40.0 Benign prostatic hyperplasia without lower urinary tract symptoms; I10 Essential (primary) hypertension; E11.9 Type 2 diabetes mellitus without complications; N20.0 Calculus of kidney; E27.9 Disorder of adrenal gland, unspecified; Z72.0 Tobacco use; Z95.5 Presence of coronary angioplasty implant and graft
CPT/HCPCS: 92507-GN; 92523-GN; 96365; 97116-GP; 97162-GP; 97166-GO; 97530-GO; 97530-GP; 97535-GO; C1713; C1769; G0480; J0690; J1100; J1170; J2405; J2704; J3010; Q9967